=== PATIENT | male | born 1985 | race Caucasian/White ===

== ENCOUNTER 2017-04-17 11:12 | Emergency (ER) | payer BC ==
[~2017-04-17] VITALS: Ht 185.4 cm; Wt 113.6 kg
[~2017-04-17 11:12] MED LIST: CYMBALTA 60MG60 MG PO; FLAGYL500 MG PO; LAMICTAL200 MG PO; LORTAB 5/500 501 TAB PO
[2017-04-17 11:20] VITALS: BP 158/98; TEMP 98.6
[2017-04-17] MEDS ORDERED: PRINIVIL20 MG PO (11:26)
[2017-04-17] MEDS ORDERED: CLARITIN 1010 MG/TAB PO (11:26)
[2017-04-17] MEDS ORDERED: PRILOSEC 20MG20 MG PO (11:26)
[2017-04-17] MEDS ORDERED: BUSPAR5 MG PO (11:27)
[2017-04-17] MEDS ORDERED: MULTI VITAMINS1 TAB PO (11:27)
[2017-04-17 12:46] LABS: BASO # 0.1 (0.0-0.2); BASO % 0.9 % (0.0-2.0); EOS # 0.1 (0.0-0.7); EOS % 1.5 % (0-4.0); GRAN # 4.2 (1.4-6.5); GRAN % 64.1 % (42.2-75.2); HEMATOCRIT 44.4 % (42.0-52.0); HEMOGLOBIN 14.8 g/dl (13.5-18.0); LYMPH # 1.6 (1.2-3.4); LYMPH % 23.8 % (20.0-51.0); MEAN CELL VOLUME 87 fl (80.0-100.0); MEAN CORPUSCULAR HEMOGLOBIN 29 pg (27.0-31.0); MEAN CORPUSCULAR HGB CONC 33 g/dl (33.0-37.0); MEAN PLATELET VOLUME 8.9 fl (7.4-10.4); MONO # 0.6 (0.1-0.6); MONO % 9.4 % (1.7-9.3); PLATELET COUNT 245 K/mm3 (130-400); RED BLOOD COUNT 5.12 M/mm3 (4.20-5.60); REDCELL DISTRIBUTION WIDTH-CV 12.8 % (11.5-14.5); WHITE BLOOD COUNT 6.6 K/mm3 (4.8-10.8)
[2017-04-17 12:50] LABS: ALANINE AMINOTRANSFERASE 39 U/L (21-72); ALBUMIN 4.7 gm/dL (3.5-5.0); ALKALINE PHOSPHATASE 60 U/L (50-136); ANION GAP 11 mmol/L (7-16); BILIRUBIN,TOTAL 0.8 mg/dL (0.0-1.0); BLOOD UREA NITROGEN 22 mg/dL (9-20); CALCIUM 9.6 mg/dL (8.4-10.2); CARBON DIOXIDE 28 mmol/L (22-30); CHLORIDE 102 mmol/L (98-107); CREATINE KINASE 164 U/L (55-170); CREATININE, serum 1.11 mg/dL (0.66-1.25); GLUCOSE 102 mg/dL (74-106); POTASSIUM 4.2 mmol/L (3.4-5.0); SODIUM 141 mmol/L (137-145); TOTAL PROTEIN 7.9 gm/dL (6.4-8.2)
[2017-04-17 12:51] LABS: C-REACTIVE PROTEIN < 0.5 mg/dL (0.0-0.9)
[2017-04-17 13:00] LABS: TROPONIN-I < 0.012 ng/mL (0.000-0.034)
[2017-04-17 13:31] VITALS: PULSE 79
== END 2017-04-17 13:32 | disposition home or self-care (01) ==
LOC: COL.ER 11:12
PROVIDERS: Physician Assistant Medical
DX: R07.89 Other chest pain (principal); I10 Essential (primary) hypertension; F31.9 Bipolar disorder, unspecified; F17.210 Nicotine dependence, cigarettes, uncomplicated
CPT/HCPCS: J1885

== ENCOUNTER → 2018-03-25 | Outpatient (CLI) | payer BC ==
[~2018-03-25] MED LIST changes: +BUSPAR5 MG PO; +CLARITIN 1010 MG/TAB PO; +MULTI VITAMINS1 TAB PO; +PRILOSEC 20MG20 MG PO; +PRINIVIL20 MG PO
== END ==
LOC: COL.RAD 12:32
DX: I86.1 Scrotal varices (principal); N45.1 Epididymitis

== ENCOUNTER 2019-07-30 14:13 | Emergency (ER) | payer BC ==
[~2019-07-30] VITALS: Ht 188 cm; Wt 113.6 kg
[2019-07-30 14:23] VITALS: BP 158/94; TEMP 98.7
[2019-07-30 16:11] LABS: COLLECTION METHOD CLEAN CATCH
[2019-07-30 16:17] LABS: BASO # 0.1 (0.0-0.2); EOS # 0.2 (0.0-0.7); EOS % 2.4 % (0-4.0); GRAN # 3.3 (1.4-6.5); GRAN % 53.2 % (42.2-75.2); HEMATOCRIT 43.2 % (42.0-52.0); HEMOGLOBIN 14.7 g/dl (13.5-18.0); LYMPH # 2.1 (1.2-3.4); LYMPH % 33.5 % (20.0-51.0); MEAN CELL VOLUME 85 fl (80.0-100.0); MEAN CORPUSCULAR HEMOGLOBIN 29 pg (27.0-31.0); MEAN CORPUSCULAR HGB CONC 34 g/dl (33.0-37.0); MEAN PLATELET VOLUME 8.8 fl (7.4-10.4); MONO # 0.6 (0.1-0.6); MONO % 9.7 % (1.7-9.3); PLATELET COUNT 247 K/mm3 (130-400); REDCELL DISTRIBUTION WIDTH-CV 12.5 % (11.5-14.5)
[2019-07-30 16:22] LABS: MUCOUS Present /lpf; PH 6 (5-8); SQUAMOUS EPITHELIAL None Seen /hpf; URINE APPEARANCE Clear; URINE BACTERIA Rare /hpf; URINE BILIRUBIN Negative (NEGATIVE); URINE BLOOD Negative (NEGATIVE); URINE COLOR Yellow; URINE GLUCOSE Negative (NEGATIVE); URINE KETONE Negative (NEGATIVE); URINE LEUKOCYTE ESTERASE Negative (NEGATIVE); URINE NITRATE Negative (NEGATIVE); URINE PROTEIN(semi-quant) Negative (NEGATIVE); URINE RBC 0-2 /hpf; URINE UROBILINOGEN Negative (NEGATIVE)
[2019-07-30 16:27] LABS: ALBUMIN 4.7 gm/dL (3.5-5.0); BILIRUBIN,TOTAL 0.5 mg/dL (0.0-1.0); CALCIUM 9.4 mg/dL (8.4-10.2); CREATININE, serum 1.1 (0.66-1.25); POTASSIUM 3.9 mmol/L (3.4-5.0); TOTAL PROTEIN 7.9 gm/dL (6.4-8.2)
[2019-07-30 17:20] VITALS: PULSE 61
== END 2019-07-30 17:20 | disposition home or self-care (01) ==
LOC: COL.ER 14:13
PROVIDERS: Emergency Medicine
DX: K52.9 Noninfective gastroenteritis and colitis, unspecified (principal); F17.210 Nicotine dependence, cigarettes, uncomplicated

== ENCOUNTER 2021-10-11 05:16 | Emergency (ER) | payer BC ==
[~2021-10-11] VITALS: Ht 188 cm; Wt 118.2 kg
[2021-10-11 05:19] VITALS: TEMP 98.6
[2021-10-11 05:43] LABS: BASO # 0.1 K/mm3 (0.0-0.2); EOS # 0.2 K/mm3 (0.0-0.7); EOS % 2.9 % (0.0-4.0); GRAN # 3.1 K/mm3 (1.4-6.5); GRAN % 45.2 % (42.2-75.2); HEMATOCRIT 43.4 % (42.0-52.0); HEMOGLOBIN 14.4 g/dl (13.5-18.0); LYMPH # 2.9 K/mm3 (1.2-3.4); LYMPH % 41.6 % (20.0-51.0); MEAN CELL VOLUME 81 fl (80.0-100.0); MEAN CORPUSCULAR HEMOGLOBIN 27 pg (27-31); MEAN CORPUSCULAR HGB CONC 33 g/dl (33.0-37.0); MEAN PLATELET VOLUME 8.7 fl (7.4-10.4); MONO # 0.6 K/mm3 (0.1-0.6); MONO % 8.7 % (1.7-9.3); PLATELET COUNT 256 K/mm3 (130-400); RED BLOOD COUNT 5.37 M/mm3 (4.20-5.60); REDCELL DISTRIBUTION WIDTH-CV 12.6 % (11.5-14.5)
[2021-10-11 05:51] LABS: PROTHROMBIN TIME 11.2 SECONDS (9.7-12.8)
[2021-10-11 05:53] LABS: PARTIAL THROMBOPLASTIN TIME 32.9 SECONDS (26.0-37.0)
[2021-10-11 06:14] LABS: ALBUMIN 4.4 gm/dL (3.5-5.0); ALKALINE PHOSPHATASE 45 U/L (40-150); ANION GAP 11 mmol/L (7-16); AST,SGOT 25 U/L (5-34); BILIRUBIN,TOTAL 0.8 mg/dL (0.2-1.2); BLOOD UREA NITROGEN 16 mg/dL (9-21); CALCIUM 8.8 mg/dL (8.4-10.2); CARBON DIOXIDE 24 mmol/L (22-29); CHLORIDE 105 mmol/L (98-107); CREATININE, serum 1.09 mg/dL (0.72-1.25); GLUCOSE 104 mg/dL (70-99); POTASSIUM 3.7 mmol/L (3.5-4.5); SODIUM 140 mmol/L (136-145); TOTAL PROTEIN 7.4 gm/dL (6.2-8.1)
[2021-10-11 06:22] LABS: TROPONIN-I < 0.010 ng/mL (0.00-0.033)
[2021-10-11 06:50] LABS: ALANINE AMINOTRANSFERASE 42 U/L (0-55)
[2021-10-11 08:56] VITALS: BP 130/93; PULSE 66
== END 2021-10-11 09:04 | disposition home or self-care (01) ==
LOC: COL.ER 05:16
PROVIDERS: Family Medicine
DX: R07.89 Other chest pain (principal); I10 Essential (primary) hypertension; K21.9 Gastro-esophageal reflux disease without esophagitis; F41.9 Anxiety disorder, unspecified; Z79.899 Other long term (current) drug therapy
CPT/HCPCS: C9113; J2060

== ENCOUNTER 2023-12-24 11:15 | Outpatient (RCR) | payer BC ==
[~2023-12-24 11:15] MED LIST changes: +MOBIC15 MG PO; +NORCO 325 MG-51 TAB PO
== END 2023-12-26 | disposition home or self-care (01) ==
LOC: WSPT
DX: S83.412D Sprain of medial collateral ligament of left knee, subsequent encounter (principal); X58.XXXD Exposure to other specified factors, subsequent encounter